=== PATIENT | female | born 1965 | race Caucasian/White ===

== ENCOUNTER 2024-02-07 18:03 | Emergency (ER) | payer OTHER ==
[~2024-02-07] VITALS: Ht 167.6 cm; Wt 76.2 kg
[2024-02-07 18:41] VITALS: TEMP 98
[2024-02-07] MEDS ORDERED: IBUP-1953 PO (19:51)
[2024-02-07 20:57] VITALS: BP 135/85; O2SAT 98
== END 2024-02-07 20:56 | disposition home or self-care (01) ==
LOC: ER 18:14
DX: S80.02XA Contusion of left knee, initial encounter (principal); S80.01XA Contusion of right knee, initial encounter; S09.8XXA Other specified injuries of head, initial encounter; I10 Essential (primary) hypertension; E11.9 Type 2 diabetes mellitus without complications; E78.5 Hyperlipidemia, unspecified; Z86.59 Personal history of other mental and behavioral disorders; Z88.0 Allergy status to penicillin; Z88.8 Allergy status to other drugs, medicaments and biological substances; W18.39XA Other fall on same level, initial encounter; Y93.89 Activity, other specified; Y92.098 Other place in other non-institutional residence as the place of occurrence of the external cause; Y99.8 Other external cause status
CPT/HCPCS: 70450-TC; 72125-TC; 73564-TC